=== PATIENT | male | born 1945 | race Caucasian/White ===

== ENCOUNTER 2017-03-06 05:36 | Inpatient (IN) ==
[2017-02-28 11:17] LABS: Basophils # 0.1 10*3/uL (0.0-0.2); Basophils % 0.6 % (0.0-0.8); Eosinophils # 1.8 10*3/uL (0.0-0.87); Eosinophils % 11.9 % (0.00-10.9); Hematocrit 43.2 VOL% (42.0-52.0); Hemoglobin 14.6 GM/DL (14.0-18.0); Immature Granulocytes % 0.8 %; Immature Granulocytes Absolute 0.12 #; Lymphocytes # 4.8 10*3/uL (1.4-4.0); Lymphocytes % 31.2 % (21.2-54.2); Mean Corpuscular HGB Conc 33.8 GM/DL (32-36); Mean Corpuscular Hemoglobin 33 PG (27-34); Mean Corpuscular Volume 97.3 FL (87-102); Mean Platelet Volume 10.7 FL (9.6-12.0); Monocytes # 1.3 10*3/uL (0.11-0.8); Monocytes % 8.5 % (1.7-12.7); Neutrophils # 7.2 10*3/uL (1.4-7.4); Platelet Count 158 T/CUMM (130-400); Red Blood Count 4.44 MC/CUMM (3.8-5.5); Red Cell Distribution Width 15.9 % (9.3-17.3); White Blood Count 15.2 T/CUMM (4-12)
[2017-02-28 11:37] LABS: Eosinophils 19 % (0-10); Hypochromasia 1+; Lymphocytes 32 % (20-55); Segmented Neutrophils 43 % (50-85); Total Cells Counted 100
[2017-02-28 11:38] LABS: Macrocytosis Slight; Platelet Estimate Adequate
[2017-02-28 11:53] LABS: Albumin 3.8 G/DL (3.4-5.0); Bilirubin,Total 0.6 MG/DL (0.2-1.0); Calcium 9.9 MG/DL (8.5-10.1); Potassium 4.2 MMOL/L (3.5-5.1); Total Protein 6.5 G/DL (6.4-8.3)
[2017-03-06] MEDS ORDERED: SODIUM CHLORIDE 0.9% 100 ML IV ONE (05:56)
[2017-03-06] MEDS ORDERED: ceFAZolin 1,000 MG VIAL ONE (05:56)
[2017-03-06] MEDS ORDERED: FAMOTIDINE 20 MG TABLET PO ONE (06:10)
[2017-03-06] MEDS ORDERED: LORazepam 1 MG TABLET PO ONE (06:10)
[2017-03-06] MEDS: LACTATED RINGERS 1,000 ML IV SCH ×2 (06:20→16:56)
[2017-03-06] MEDS ORDERED: TISSUE ADHESIVE 1 EACH APPLICATOR TOP ONE (06:30)
[2017-03-06] MEDS ORDERED: HEPARIN 5,000 UNIT/1 ML VIAL ONE (06:30)
[2017-03-06] MEDS ORDERED: VANCOMYCIN 500 MG VIAL ONE (06:30)
[2017-03-06] MEDS ORDERED: LIDOCAINE 2% TOP JELLY 5 ML TUBE TOP ONE (06:30)
[2017-03-06] MEDS ORDERED: THROMBIN TOPICAL (RECOMBINANT) 5,000 UNIT VIAL TOP ONE (06:31)
[2017-03-06] MEDS ORDERED: FAMOTIDINE 20 MG TABLET ONE (06:34)
[2017-03-06] MEDS ORDERED: LORazepam 1 MG TABLET ONE (06:34)
[2017-03-06] MEDS ORDERED: HEPARIN/NACL 0.9% 2 UNITS/ML 3,000 ML IV ONE (07:08)
--- NOTE | 2017-03-06 07:41 | History and Physical Update ---
History and Physical Update - History and Physical H&P was reviewed, the patient examined and there: are no changes in the patients condition since last H&P was completed.
[2017-03-06] MEDS ORDERED: ONDANSETRON 4 MG/2 ML VIAL IV PRN (11:46)
[2017-03-06] MEDS ORDERED: ETOMIDATE 20 MG/10 ML VIAL IV ONE (11:57)
[2017-03-06] MEDS ORDERED: ONDANSETRON 4 MG/2 ML VIAL ONE (11:57)
[2017-03-06] MEDS ORDERED: HEPARIN 10,000 UNIT/10 ML VIAL ONE (11:57)
[2017-03-06] MEDS ORDERED: LIDOCAINE 100 MG/5 ML SYRINGE ONE (11:57)
[2017-03-06] MEDS ORDERED: SEVOFLURANE 1 UNIT/15 MINUTE INH ONE (12:18)
[2017-03-06] MEDS ORDERED: fentaNYL 100 MCG/2 ML VIAL ONE (12:19)
--- NOTE | 2017-03-06 12:35 | Post Interventional Procedure ---
Pre-op diagnosis: AAA, iliac artery anurysm Post-op diagnosis: same Procedure: 1. Coil embolization right hypogastric artery 2. ROSSY R AAA and iliac artery aneurysms 3. Successful bilateral percutaneous closure of both arteriotomy sites Radiologist: Wicho Rayo [employer] Repairer: Ankit Ochoa (Chayo) Anesthesia: GETA Specimens: none sent Estimated blood loss: other (200cc) Complications: none Condition: stable Description/Findings: Successful EVAR as described. 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 Rayo, first assistants Dr. Ochoa and Dr. Domingo. Assessment and Plan - Time spent with patient Time spent with patient: Greater than 30 minutes
[2017-03-06] MEDS ORDERED: ALBUTEROL/IPRATROPIUM 3 ML NEB RESP TX ONE (12:36)
--- NOTE | 2017-03-06 13:34 | Anesthesia Post-Op ---
Anesthesia Post OP - Post Ansesthetic Evaluation Patient seen in post op: Yes Resp: within normal limits CV: within normal limits Mental: within normal limits Temp: within normal limits Kban-[id number]-[id number]: within normal limits Nausea and Vomiting: within normal limits Pain: within normal limits
[2017-03-06 14:12] LABS: Hematocrit 35.7 VOL% (42.0-52.0); Hemoglobin 12.3 GM/DL (14.0-18.0)
[2017-03-06 14:50] LABS: Apearance,Urine CLEAR (Clear); Bilirubin,Urine Negative (Negative); Blood, Urine Negative (Negative); Glucose,Urine (UA) Negative (Negative); Ketones,Urine Negative (Negative); Mucus,Urine Occasional /LPF (Occasional); Nitrite,Urine Negative (Negative); Protein,Urine Negative; RBC,Urine 3 /HPF (0-4); Urine Color Yellow (Yellow); Urine Specific Gravity 1.014 (1.001-1.035); Urine Urobilinogen < 2.0 EU/DL (0.2-1.0); WBC,Urine <1 /HPF (0-6)
[2017-03-06] MEDS: HYDROmorphone 2 MG/1 ML VIAL IV PRN ×2 (15:33→20:50)
[2017-03-06] MEDS ORDERED: NON-FORMULARY MEDICATION (Pravastatin [Pravachol] 40 MG) PO SCH (21:00)
[2017-03-06] MEDS ORDERED: TAMSULOSIN 0.4 MG PO SCH (21:00)
[2017-03-06] MEDS ORDERED: NON-FORMULARY MEDICATION (Docusate Sodium Cap [Colace Cap] 100 MG) PO SCH (21:00)
[2017-03-06] MEDS ORDERED: PREGABALIN 75 MG PO SCH (21:00)
[2017-03-06] MEDS ORDERED: QUETIAPINE 50 MG PO SCH (21:00)
[2017-03-06] MEDS: traZODone 50 MG TABLET PO SCH (22:20)
--- NOTE | 2017-03-07 01:34 | Interventional Radiology Rpt ---
[id number], US guide vascular access, IR emboliz art not hem or harika, US guide vascular access 03/06/2017 12:00 AM Operating Physicians: Wicho Rayo M.D., Kd Domingo M.D., Ankit Ochoa M.D. Indication: Aortic and right common iliac artery aneurysms Time out: A formal timeout performed. Patient was placed under general endotracheal anesthesia. Dr. Reese Domingo was available for cutdown to both common femoral arteries, which will be described under separate report if necessary. The right common femoral artery was accessed with a 21-gauge microstick system using ultrasound guidance. Brief angiogram demonstrates access into the common femoral artery approximately 1 cm above the femoral bifurcation. An Amplatz wire was advanced into the abdominal aorta. 2 separate program on Perclose devices were then used to "pre-close" the arteriotomy access site. An 8 Andorran working sheath was left in place. The left common femoral artery was accessed with a 21-gauge microstick system using ultrasound guidance. An Amplatz wire was advanced into the abdominal aorta. 2 separate Proglide Perclose devices were then used to "pre-close" the arteriotomy access site. An 8 Andorran working sheath was left in place. A flush catheter advanced into the suprarenal abdominal aorta. This demonstrates a small distal aortic aneurysm and a large right common iliac artery aneurysm as seen on prior images. Attention was then turned towards embolization of the right hypogastric artery. The pigtail catheter and Glidewire were used to catheterize the right external iliac artery. The Glidewire was exchanged for a stiff Amplatz wire. The left 8 Andorran sheath was exchanged for a 7 Andorran Balkan sheath which was advanced up and over the aortic bifurcation to catheterize the right common iliac artery. Subsequently, a Tegmeyer catheter and Glidewire were used to catheterize the right internal iliac artery. At this point, 5 separate pushable 5 mm tornado coils were advanced and deployed in the usual fashion to obtain hemostasis and prevent future type II endoleak. The Tegtmeyer catheter was then withdrawn into the common iliac artery and repeat arteriogram demonstrates near complete cessation of flow within the right internal iliac vessel. The left Balkan sheath was then removed and the 8 Andorran sheath was replaced without difficulty. Subsequently, the right 8 Andorran sheath was removed and an Ovation 26mm/12 Andorran abdominal stent graft system was advanced over the stiff Amplatz wire and positioned within the infrarenal abdominal aorta. Repeat flush aortogram demonstrates positioning of the renal arteries. The graft was then deployed in the usual fashion and an infrarenal location without difficulty. Subsequently, the sealing material was instilled into the per surveying teacher specifications to seal the inflow. At this point, cannulation of the contralateral gate was attempted but unsuccessful. Subsequently, an 018 wire was passed through the endograft access mechanism and snared from the left common femoral sheath. This wire was then utilized to cannulate the gate with a 4 Andorran Kumpe catheter. Subsequently, the superstiff Amplatz wire was passed into the abdominal aorta appropriately through the targeted contralateral limb. The main body graft was then removed without difficulty. Endograft extension limb placement was then addressed. Left common iliac artery angiogram via the indwelling left common femoral artery sheath demonstrates the left common iliac artery aneurysm and origin of the left internal iliac artery. Through the left groin arteriotomy, the 28 x 120 mm endovascular stent graft was utilized and deployed without difficulty. Attention was then turned towards extending the right limb. The 12 x 160 Endovascular stent graft was then advanced into the ipsilateral gate and deployed without difficulty. However, the distal seal at the external iliac was limited, probably less than 1 cm. Follow-up angiogram demonstrates a small type IB leak. Therefore, the decision was made to extend this graft limb. Finally, a 12 mm x 45 mm endovascular stent graft was then deployed in typical fashion to extend the ipsilateral right limb and achieved good seal at the external iliac artery. Subsequently, 10 and 12 mm are not balloons were advanced through both sheaths and simultaneous low pressure angioplasty was performed throughout the graft. Flush aortogram demonstrates exclusion of the right common iliac artery aneurysm, however there is suggestion of type I A leak at the location of the main graft body to the hydraulic lift driver limbs. There is also a delayed type II leak likely through the large lumbar vessels. Sequential angioplasty then again performed by myself and Dr. Ochoa from the inflow portion of the main body device, through the flow divider, and to the outflow portion of both iliac extenders. At this point, the flush catheter was again readvanced and flush aortogram demonstrates excellent flow through the main body graft and both limbs with no continued type IA leak. The delayed images do again suggest type II leak, likely through the large lumbar vessels. The distal seal at the landing zone bilaterally appears well occluded with brisk run off flow. Given the findings, there was no further intervention warranted at this time. ACT was checked and was approximately 160. No protamine reversal was given. Initially, attention was turned toward the right arteriotomy site and sequential closure of the arteriotomy was achieved with the previously placed Perclose devices. There was no significant hematoma or hemorrhage following 5 minutes manual pressure. Sterile dressing was applied. Subsequently, the left arteriotomy site was addressed. Sequential closure of the arteriotomy was achieved with the previous and placed Perclose devices. There was no significant hematoma or hemorrhage following 5 minutes manual compression. A sterile dressing was applied. Patient was awakened and transferred to recovery in stable condition. Medications: GETA. See anesthesia notes. Estimated blood loss: 200 mL. Contrast: Omnipaque 350, 180 cc. Fluoroscopy time: 43.2 minutes. Total images for the study: 689 Impression: Percutaneous endovascular repair of abdominal and right common iliac artery aneurysms utilizing an Endologix Ovation Stent Graft System as described above. Embolization of the right internal iliac artery as detailed above. PROCEDURE INTERPRETED AT [facility] DEPARTMENT OF RADIOLOGY Final Report Signed by: Wicho Rayo
[2017-03-07 04:37] LABS: Hematocrit 34.5 VOL% (42.0-52.0); Hemoglobin 11.7 GM/DL (14.0-18.0)
[2017-03-07 05:21] LABS: Osmolality,Calculated 277.5 MOS/KG (273-304); Potassium 3.8 MMOL/L (3.5-5.1)
[2017-03-07] MEDS: oxyCODONE/ACETAMINOPHEN 5-325 MG TABLET PO PRN ×3 (08:13→20:47)
[2017-03-07] MEDS: ASPIRIN EC 81 MG TABLET PO SCH (08:13)
--- NOTE | 2017-03-07 08:41 | Event Note ---
Mr. Gilliam is doing generally well this morning and with good vital signs good urine output lab looks good groins are fine with no hematomas has palpable dorsalis pedis pulses and posterior tibials bilaterally he states he does not feel very good this morning is not really been up ambulating much. KUB is pending but I encouraged him to ambulate this morning and perhaps he will be able to go home this evening
[2017-03-07] MEDS ORDERED: ALENDRONATE PO SCH (09:00)
[2017-03-07] MEDS ORDERED: DILTIAZEM HCL 120 MG PO SCH (09:00)
[2017-03-07] MEDS ORDERED: LISINOPRIL PO SCH (09:00)
--- NOTE | 2017-03-07 09:22 | XRay Report ---
XR KUB Indication: Status post endovascular repair of abdominal aortic aneurysm. Comparison: KUB 10/23/2010. Technique: Supine AP image of the abdomen was obtained. Findings: Aortobiiliac stent graft is present. There is been interval coiling of the right internal iliac artery. Bowel gas pattern demonstrates no significant abnormality. No organomegaly is present. Lung bases are clear. Impression: 1. Stable appearance of abdominal contents status post interval right internal iliac artery embolization and placement of aortobiiliac endograft. 03/07/2017 9:18 AM PROCEDURE INTERPRETED AT [facility] DEPARTMENT OF RADIOLOGY Final Report Signed by: Dr. Dhiraj Glass
--- NOTE | 2017-03-07 10:19 | Event Note ---
Pt in radiology this morning. Pt seen last night. No c/o. Tolerating PO. Ambulating. Groins w/o hematoma, ecchymosis. 2+ B DP pulses. Doing well POD1 EVAR AAA and iliac artery aneurysms, anticipate DC today.
[2017-03-07] MEDS ORDERED: DOCUSATE SODIUM 100 MG CAPSULE PO PRN (15:49)
[2017-03-07] MEDS ORDERED: DILTIAZEM 60 MG TABLET PO SCH (16:00)
[2017-03-07] MEDS: MULTIVITAMIN (CENTRUM) TABLET PO SCH (18:01)
[2017-03-07] MEDS: CALCIUM (CITRATE) 200 MG TABLET PO SCH (18:01)
[2017-03-07] MEDS: OMEGA 3 ACID ETHYL ESTERS 1 GM CAPSULE PO SCH ×2 (18:01→20:50)
[2017-03-07] MEDS: metFORMIN 500 MG TABLET PO SCH (18:08)
[2017-03-07] MEDS: LISINOPRIL 2.5 MG TABLET PO SCH (18:09)
[2017-03-07] MEDS: PREGABALIN 75 MG CAPSULE PO SCH (20:46)
[2017-03-07] MEDS: DILTIAZEM CD 120 MG CAPSULE PO SCH (20:46)
[2017-03-07] MEDS: traZODone 50 MG TABLET PO SCH (20:47)
[2017-03-07] MEDS ORDERED: QUEtiapine 25 MG TABLET PO SCH (21:00)
[2017-03-07] MEDS ORDERED: TAMSULOSIN 0.4 MG CAPSULE PO SCH (21:00)
[2017-03-07] MEDS ORDERED: PRAVASTATIN 40 MG TABLET PO SCH (21:00)
[2017-03-08] MEDS: oxyCODONE/ACETAMINOPHEN 5-325 MG TABLET PO PRN (06:51)
[2017-03-08] MEDS ORDERED: CHOLECALCIFEROL 1,000 UNIT TABLET PO SCH (09:00)
--- NOTE | 2017-03-08 09:13 | Discharge Summary ---
Hospital Course - Hospital Course Hospital Course: Mane a 71-year-old man admitted with an enlarging right iliac aneurysm a moderate left iliac aneurysm and a modest abdominal aortic aneurysm. He has been successfully treated with endovascular grafting using the new ovation graft this is worked very well he had just feelings of malaise and achiness on his first postoperative day therefore stayed overnight a second night he is doing well he is up and about his groin incisions look good and he is ready for discharge. I discussed with him and his his exercise restrictions wound care showering bathing driving and expected long-term follow-up in recovery. I will plan to see him in the office 1 week he will resume his normal home meds were I am not recommending any narcotic pain relievers just Tylenol or Advil. Specialty Discharge - Follow Up or Referrals Follow up with: Flavio Domingo MD [Physician] - Discharge Plan - Discharge Data Disposition: Disch To Home/Self Care Condition at Discharge: Stable Discharge Diet: diabetic diet Activity: resume usual activities as tolerated Hygiene: may shower Weight Bearing at Discharge: full weight bearing Driving: no restrictions Contact your physician if you experience:: fever over 101, Redness or swelling, Bleeding - Discharge Medications No Action Cholecalciferol [Vitamin D3] 1,000 unit PO DAILY Calcium (Citrate) [Citracal] 600 mg PO DAILY Multivitamin [One Daily] 1 each PO DAILY Aspirin [Ecotrin] 81 mg PO DAILY Pregabalin [Lyrica] 75 mg PO BID [place]-3 Fatty Acids [Fish Oil] 300 mg PO BID Pravastatin [Pravachol] 40 mg PO BEDTIME Docusate Sodium Cap [Colace Cap] 100 mg PO BEDTIME metFORMIN [Glucophage] 500 mg PO BID W/MEALS Trazodone HCl 100 mg PO BEDTIME Tamsulosin [Flomax] 0.4 mg PO BEDTIME QUEtiapine [SEROquel] 50 mg PO BEDTIME Ascorbic Acid [Vitamin C] 500 mg PO DAILY Duloxetine HCl [Duloxetine] 30 mg PO QID Olodaterol HCl [Striverdi Respimat] 2 puffs IH DAILY Alendronate [Fosamax] 70 mg PO DAILY Lisinopril 1.25 mg PO DAILY Albuterol Inhaler [Proventil Inhaler] 2 puff INH QID PRN PRN Reason: Shortness Of Breath dilTIAZem HCl [Diltiazem ER (12 hr)] 120 mg PO BID - Follow Up or Referral Follow Up: Flavio Domingo MD [Physician] - 1 Week - Forms/Instructions Exam - Constitutional Vitals: Period Temp Pulse Resp BP Sys/Cazares Pulse Ox Last 24 Hr 98.9 F-100.3 F 72-104 16-20 114-141/57-80 91-97 Discharge Results Labs on day of discharge: Labs from last 24 hours 03/08/17 03/07/17 03/07/17 07:01 20:00 15:29 POC Glucose 130 H 212 H 125 H 03/07/17 11:35 POC Glucose 112 H DS: Provider Date of admission: 03/06/17 05:36 Primary care physician: . No PCP Attending physician on admission: Flavio Domingo MD Consults: 03/06/17 13:57 Consult to Pharmacy [CONS] Routine Reason for Pharmacy Consult: Adjust Meds Renal Funct Discharging clinician: Flavio Domingo MD
[2017-03-08] MEDS: MULTIVITAMIN (CENTRUM) TABLET PO SCH (09:35)
[2017-03-08] MEDS: OMEGA 3 ACID ETHYL ESTERS 1 GM CAPSULE PO SCH ×2 (09:35→09:38)
[2017-03-08] MEDS: LISINOPRIL 2.5 MG TABLET PO SCH (09:35)
[2017-03-08] MEDS: ASPIRIN EC 81 MG TABLET PO SCH (09:35)
[2017-03-08] MEDS: CALCIUM (CITRATE) 200 MG TABLET PO SCH (09:35)
[2017-03-08] MEDS: PREGABALIN 75 MG CAPSULE PO SCH (09:35)
[2017-03-08] MEDS: DILTIAZEM CD 120 MG CAPSULE PO SCH (09:36)
[2017-03-08] MEDS: metFORMIN 500 MG TABLET PO SCH (09:36)
[2017-03-08 11:24] VITALS: BP 111/75
== END 2017-03-08 12:35 | disposition home or self-care (01) | DRG 269 ==
LOC: N.SDSINP 05:36 → N.3E 13:40
PROVIDERS: ADMIT Surgery; ATTEND Surgery
PROC: IRERAAA (2017-03-06 08:00)